=== PATIENT | female | born 1985 | race Caucasian/White ===

== ENCOUNTER 2017-03-05 04:49 | Inpatient (IN) | payer BC ==
[2017-03-05] MEDS ORDERED: Sodium Chloride 0.9% 10 ML Syringe FLUSH PRN (05:54)
[2017-03-05] MEDS ORDERED: Lidocaine 1% 50 ML MDV INJECT ONE (06:00)
[2017-03-05] MEDS ORDERED: Oxytocin/Lactated Ringers 10 UNIT/1,000 ML BAG IV SCH (06:00)
[2017-03-05] MEDS: Lactated Ringers 1,000 ML IV SCH ×2 (06:22→06:56)
[2017-03-05] MEDS ORDERED: Nalbuphine 20 MG/1 ML Amp IVPUSH PRN (06:43)
[2017-03-05] MEDS ORDERED: ePHEDrine 50 MG/ML SDV IVPUSH PRN (06:47)
[2017-03-05] MEDS ORDERED: fentaNYL 100 MCG/2 ML SDV EPIDUR PRN (06:47)
[2017-03-05] MEDS ORDERED: Ondansetron 4 MG/2 ML SDV IVPUSH PRN (06:47)
--- NOTE | 2017-03-05 06:54 | PCM.PREANE ---
Preanesthetic Assessment - Anesthesia/Transfusion/Family Hx Type of Transfusion Reactions: Reports: Unknown Intubation History: Unknown - Physical Assessment NPO Status Date: 03/05/17 Pulse: 76 O2 Sat by Pulse Oximetry: 99 Respiratory Rate: 18 Blood Pressure: 150/71 Temperature: 36.9 C Height: 1.63 m Weight: 84.822 kg ASA Class: 2 Mental Status: Alert & Oriented x3 - Lab Values: Laboratory Last Values WBC 13.95 K/mm3 (3.98-10.04) H 03/05/17 06:05 RBC 4.79 M/mm3 (3.98-5.22) 03/05/17 06:05 Hgb 12.3 gm/L (11.2-15.7) 03/05/17 06:05 Hct 37.0 % (34.1-44.9) 03/05/17 06:05 MCV 77.2 fl (79.4-94.8) L 03/05/17 06:05 MCH 25.7 pg (25.6-32.2) 03/05/17 06:05 MCHC 33.2 g/dl (32.2-35.5) 03/05/17 06:05 RDW Std Deviation 42.7 fL (36.4-46.3) 03/05/17 06:05 Plt Count 205 K/mm3 (182-369) 03/05/17 06:05 MPV 10.4 fl (9.4-12.3) 03/05/17 06:05 Neut % (Auto) 77.0 % (34.0-71.1) H 03/05/17 06:05 Lymph % (Auto) 17.1 % (19.3-51.7) L 03/05/17 06:05 Mathews % (Auto) 5.2 % (4.7-12.5) 03/05/17 06:05 Eos % (Auto) 0.6 (0.7-5.8) L 03/05/17 06:05 Baso % (Auto) 0.1 % (0.1-1.2) 03/05/17 06:05 Neut # (Auto) 10.76 K/mm3 (1.56-6.13) H 03/05/17 06:05 Lymph # (Auto) 2.38 K/mm3 (1.18-3.74) 03/05/17 06:05 Mathews # (Auto) 0.72 K/mm3 (0.24-0.36) H 03/05/17 06:05 Eos # (Auto) 0.08 K/mm3 (0.04-0.36) 03/05/17 06:05 Baso # (Auto) 0.01 K/mm3 (0.01-0.08) 03/05/17 06:05 above labs reviewed and noted. - Allergies Allergies/Adverse Reactions: Allergies Allergy/AdvReac Type Severity Reaction Status Date / Time No Known Allergies Allergy Verified 02/18/15 09:38 - Anesthesia Plan Pre-Op Medication Ordered: None - Acknowledgements Anesthesia Type Planned: Epidural Pt an Appropriate Candidate for the Planned Anesthesia: Yes Alternatives and Risks of Anesthesia Discussed w Pt/Guardian: Yes Pt/Guardian Understands and Agrees with Anesthesia Plan: Yes PreAnesthesia Questionnaire - Past Health History Medical/Surgical History: Denies Medical/Surgical History - SUBSTANCE USE Smoking Status *Q: Never Smoker Tobacco Use Within Last Twelve Months: No Second Hand Smoke Exposure: No Recreational Drug Use History: No - HOME MEDS Home Medications: Home Meds Nitrofurantoin Monohyd/M-Cryst [Macrobid 100 mg Capsule] 100 mg PO BID #20 capsule 11/07/16 [Rx] - CURRENT (IN HOUSE) MEDS Current Meds: Current Medications Ephedrine Sulfate (Ephedrine Sulfate) 5 mg IVPUSH ASDIRECTED PRN PRN Reason: Hypotension Fentanyl (Sublimaze) 100 mcg EPIDUR Q3H PRN PRN Reason: Pain Fentanyl/Bupivacaine HCl (Fentanyl/Bupivacaine/Ns 2 Mcg-0.125% 100 Ml) 100 ml EPIDUR ASDIRECTED BRIAN Lactated Ringer's (Ringers, Lactated) 1,000 mls @ 100 mls/hr IV ASDIRECTED BRIAN Last Admin: 03/05/17 06:22 Dose: 999 mls/hr Oxytocin/Lactated Ringer's (Pitocin In Lr 10 Units/1,000 Ml) 10 unit in 1,000 mls @ 100 mls/hr IV TITRATE BRIAN PRN Reason: Protocol Nalbuphine HCl (Nubain) 10 mg IVPUSH Q3H PRN PRN Reason: Pain Ondansetron HCl (Zofran) 4 mg IVPUSH ONETIME PRN PRN Reason: Nausea/Vomiting Sodium Chloride (Saline Flush) 10 ml FLUSH ASDIRECTED PRN PRN Reason: Keep Vein Open Discontinued Medications Lidocaine HCl (Xylocaine 1%) 50 ml INJECT ONETIME ONE Stop: 03/05/17 06:01
[2017-03-05] MEDS ORDERED: Bupivacaine/fentaNYL/NS 100 ML Bag EPIDUR SCH (07:00)
[2017-03-05] MEDS ORDERED: Benzocaine/Menthol 20%-0.5% Spray 56 GM Canister TOP PRN (07:27)
[2017-03-05] MEDS ORDERED: Lanolin 100% Cream 7 GM Tube TOP PRN (07:27)
[2017-03-05] MEDS ORDERED: Witch Hazel Medicated Pads 100/Jar TOP PRN (07:27)
[2017-03-05] MEDS ORDERED: Acetaminophen 325 MG Tab PO PRN (07:27)
[2017-03-05] MEDS ORDERED: Docusate Sodium 100 MG Cap PO PRN (07:27)
[2017-03-05] MEDS: Ibuprofen 600 MG Tab PO PRN (09:00)
[2017-03-05] MEDS: Prenatal Multivitamin with Calcium/Folic Acid/Iron Tab PO SCH (10:40)
--- NOTE | 2017-03-05 13:18 | HP ---
DATE OF ADMISSION: 03/05/2017 ADMISSION DIAGNOSIS: A 39 and 3/7th week intrauterine , active labor. HISTORY OF PRESENT ILLNESS: The patient is a 31-year-old 2, para 1-0-0-1 white female, who is admitted in active labor with cervical dilation of 5 to 6 cm. She is angela every 3 to 4 minutes-moderate intensity. Membranes are intact. heart tones are generally reassuring. SQUAD BOSS HISTORY: KANNAN 03/10/2017 placing her at 39 and 3/7th weeks gestational age. Her last menstrual period of 06/03/2016 onset is used for dating of the . This was supported by 2 ultrasounds being done on 09/09/2016 and again on 10/23/2016. course has been relatively unremarkable with the exception that she is a gestational diabetic, who has been very well controlled with her diet alone. She plans on . She is Rh negative and RhoGAM was given on 12/18/2016. Her Jones depression screen score done on 10/29/2016 with a score of 1. She is group B strep negative. She declined genetic evaluation. course started on 09/03/2016 at 13 and 1/7th weeks gestational age. She was seen on a very regular basis. Weight gain was from approximately 161 pounds up to 187 pounds for 26 pounds weight gain. Her vital signs remained stable throughout the course. Fundal height growth was appropriate. LABORATORY DATA: Laboratory testing in showed her blood to be A negative with negative antibody screen. Initial labs showed hemoglobin of 13.8 and a platelet count 225,000. She is rubella immune. RPR is nonreactive. Urine culture was negative. Hepatitis B surface antigen and HIV assays were both negative. Gonorrhea and chlamydia were both negative. Her 1-hour GTT was 191. Her 3-hour glucose tolerance test was abnormal. Gestational diabetes was diagnosed with a 3-hour GTT showing a fasting blood sugar, 92, a 1-hour sugar of 219, 2-hour blood sugar 159, 3-hour blood sugar 110. The patient received her anti-D immunoglobulin on 12/18/2016. She is group B strep negative. ALLERGIES: None. CURRENT MEDICATIONS: vitamins 1 daily. PAST MEDICAL HISTORY: 1. The patient has had 1 spontaneous vaginal delivery on 02/19/2015 at 39 and 4/7th weeks gestational age after 29 hours of labor-6 pounds 12 ounces female, named Joshua Granado. 2. Fracture of right humerus. PAST SURGICAL HISTORY: Unremarkable. FAMILY HISTORY: No bleeding, blood clotting, , or anesthesia problems noted in the family. Mother and father alive and well. Father with GERD. Two brothers alive and well. Maternal grandmother secondary to liver cancer. Maternal grandfather secondary to an [place]. Paternal grandmother and maternal grandfather alive and well. Paternal aunt with breast cancer, also with recurrent loss. No other problems noted. SOCIAL HISTORY: The patient is . is Ryley Thompson. 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 She does not use any significant amounts of alcohol, drugs, or tobacco. They live in [place], [place]. REVIEW OF SYSTEMS: SKIN: Negative. CARDIOVASCULAR: Negative. LUNGS: No infectious or asthma symptoms noted. BREASTS: Changes associated with only. GASTROINTESTINAL: Negative. GENITOURINARY: Increased fundal height and abdominal circumference consistent with . NEUROLOGIC: Negative. MUSCULOSKELETAL: Occasional edema in bilateral lower extremities. PHYSICAL EXAMINATION: GENERAL: On last evaluation in clinic, the patient is a well-developed, well- nourished, pleasant female of stated age, in no acute distress. The patient appears to be doing well. Mild distress secondary to contractions. VITAL SIGNS: Her weight was 187 with pre- weight of 161, blood pressure is 124/86, and heart rate was 140. Her height is 5 feet 4 inches. SKIN: Warm and dry without lesions. LUNGS: Clear with good breath sounds in all lung aguilar. CARDIOVASCULAR: Shows regular rate and rhythm without murmurs. BREASTS: Deferred, having been done at first visit, and found to be normal. The patient does plans to nurse. ABDOMEN: Protuberant with with fundal height of 38 cm. GENITOURINARY: Cervical exam as above. Baby in a vertex presentation, bag of zhang intact. EXTREMITIES AND NEUROLOGIC: Grossly within normal limits. No significant edema is noted. ASSESSMENT: 1. Term intrauterine at 39 and 3/7th weeks gestational age, in active labor with advanced cervical dilation. 2. The patient is okay with epidural. I would like to try natural labor. 3. Gestational diabetes-under excellent control with diet alone. 4. The patient plans to nurse. PLAN: 1. I anticipate normal spontaneous vaginal delivery. 2. Labor analgesia per patient's desire. 3. Encourage nursing behavior. 4. Rh immune globulin if indicated after delivery. THEODORA /[id number]
[2017-03-06] MEDS: Ibuprofen 600 MG Tab PO PRN (02:10)
--- NOTE | 2017-03-06 06:29 | PCM.SN ---
- Free Text/Narrative Note: Sharon is doing well this morning. Has minimal lochia. Nursing is going well. She is ambulating without concerns. Patient is afebrile, vital signs stable. Uterus is firm and it just below the umbilicus. It is nontender. Legs are nontender without significant edema Assessment/plan: day 1-good recovery. Hemoglobin today. Routine cares. Possibly home later today.
[2017-03-06] MEDS: Prenatal Multivitamin with Calcium/Folic Acid/Iron Tab PO SCH (09:29)
--- NOTE | 2017-03-06 11:45 | PCM.DCSUM1 ---
Discharge Summary - Hospital Course Free Text/Narrative:: Sharon is a 31-year-old 2 now para 2002 white female who began labor at approximately 0330 hrs. on 03/05/2017. She progressed rapidly and delivered within approximately six-hour period. She delivered a viable, thapa male infant. At a second-degree laceration which was repaired in routine fashion. She is nursing without problems. Patient's post has been unremarkable. She is well sounds. Minimal lochia. She is voiding well. She desires to be discharged home. - Discharge Data Discharge Date: 03/06/17 Discharge Disposition: Home, Self-Care 01 Condition: Good - Patient Instructions Diet: Regular Diet as Tolerated (Nursing diet with increased calories and calcium as recommended) Activity: As Tolerated (No intercourse or tampons until bleeding resolves.) Driving: May Drive Today Showering/Bathing: May Shower (May take a bath) Notify Provider of: Fever, Increased Pain, Swelling and Redness, Nausea and/or Vomiting - Discharge Plan Home Medications: Home Meds PNV95/Ferrous Fumarate/FA [ Tablet] 1 each PO DAILY 03/05/17 [History] Ibuprofen [IJD: Ibuprofen] 600 mg PO Q4H PRN #30 tablet 03/06/17 [Rx] Referrals: Jared Justice MD [Primary Care Provider] - (Return to [facility]Dr. Justice[address] [place] [address]) - Discharge Summary/Plan Comment DC Time >30 min.: No Discharge Summary/Plan Comment: Discharge instructions: 1. Discharge home 2. Regular, high fiber, nursing diet with increase calories and calcium as recommended 3. Precautions given concern increased pain, bleeding, temperature, signs/ symptoms of DVT/PE. 4. Medications per medication list printed, discussed with and given to the patient. 5. [facility] Diagnosis: 40+ week intrauterine , delivered Condition: Good - Patient Data Vitals - Most Recent: Last Vital Signs Temp 36.6 C 03/06/17 05:00 Pulse 76 03/06/17 05:00 Resp 12 03/06/17 05:00 BP 97/76 03/06/17 05:00 Pulse Ox 99 03/06/17 05:00 Weight - Most Recent: 84.822 kg Lab Results - Last 24 hrs: Laboratory Results - last 24 hr 03/06/17 Range/Units 06:35 WBC 12.08 H (3.98-10.04) K/mm3 RBC 4.38 (3.98-5.22) M/mm3 Hgb 11.1 L (11.2-15.7) gm/L Hct 34.6 (34.1-44.9) % MCV 79.0 L (79.4-94.8) fl MCH 25.3 L (25.6-32.2) pg MCHC 32.1 L (32.2-35.5) g/dl RDW Std Deviation 42.7 (36.4-46.3) fL Plt Count 184 (182-369) K/mm3 MPV 10.4 (9.4-12.3) fl Med Orders - Current: Current Medications Acetaminophen (Tylenol) 650 mg PO Q4H PRN PRN Reason: mild pain or fever Benzocaine/Menthol (Dermoplast Pain Relief Holiday) 0 gm TOP ASDIRECTED PRN PRN Reason: Perineal Comfort Measure Last Admin: 03/05/17 08:59 Dose: 56 gm Docusate Sodium (Colace) 100 mg PO BID PRN PRN Reason: Constipation Emollient Ointment (Lansinoh Hpa) 0 gm TOP ASDIRECTED PRN PRN Reason: Sore Nipples Ibuprofen (Motrin) 600 mg PO Q4H PRN PRN Reason: Mild pain or fever Last Admin: 03/06/17 02:10 Dose: 600 mg Prenat Multivit/Organ Pipe Voicer/Iron/Folic Ac ( Plus Iron) 1 each PO DAILY BRIAN Last Admin: 03/06/17 09:29 Dose: 1 each Witch Sharonda (Tucks) 1 pad TOP ASDIRECTED PRN PRN Reason: Hemorrhoid pain Last Admin: 03/05/17 08:59 Dose: 1 tub Discontinued Medications Ephedrine Sulfate (Ephedrine Sulfate) 5 mg IVPUSH ASDIRECTED PRN PRN Reason: Hypotension Fentanyl (Sublimaze) 100 mcg EPIDUR Q3H PRN PRN Reason: Pain Fentanyl/Bupivacaine HCl (Fentanyl/Bupivacaine/Ns 2 Mcg-0.125% 100 Ml) 100 ml EPIDUR ASDIRECTED BRIAN Lactated Ringer's (Ringers, Lactated) 1,000 mls @ 100 mls/hr IV ASDIRECTED BRIAN Last Admin: 03/05/17 06:56 Dose: 999 mls/hr Oxytocin/Lactated Ringer's (Pitocin In Lr 10 Units/1,000 Ml) 10 unit in 1,000 mls @ 100 mls/hr IV TITRATE BRIAN PRN Reason: Protocol Last Admin: 03/05/17 07:10 Dose: 500 mls/hr, 500 mls/hr Lidocaine HCl (Xylocaine 1%) 50 ml INJECT ONETIME ONE Stop: 03/05/17 06:01 Last Admin: 03/05/17 07:15 Dose: 50 ml Nalbuphine HCl (Nubain) 10 mg IVPUSH Q3H PRN PRN Reason: Pain Ondansetron HCl (Zofran) 4 mg IVPUSH ONETIME PRN PRN Reason: Nausea/Vomiting Sodium Chloride (Saline Flush) 10 ml FLUSH ASDIRECTED PRN PRN Reason: Keep Vein Open *Q Meaningful Use (DIS) - VTE *Q VTE Criteria *Q: - Stroke *Q Stroke Criteria *Q: - AMI *Q AMI Criteria *Q:
--- NOTE | 2017-03-06 13:13 | PCM.SN ---
- Free Text/Narrative Note: Delivery note: Quique is a 31-year-old 2 now para 2002 white female who arrived in spontaneous labor having onset at approximately 0330 hrs. on 2016. She progressed to complete and delivered at 0708 hrs. She delivered a viable, thapa male with Apgars of 9 and 9, weight of 3300 g (7 pounds 4.4 ounces) in an occiput anterior position. The second-degree laceration which was repaired with 3-0 Monocryl in a routine fashion. Baby's length was 20.0 inches. Lidocaine 1%10 mL was used for anesthesia. Placenta delivered in a Claire presentation. Estimated blood loss was 100 mL. Pitocin was given IV after delivery the baby. patient plans to nurse.
--- NOTE | 2017-03-06 13:14 | US ---
Right lower extremity deep venous ultrasound: Duplex and color flow imaging was obtained of the right common femoral vein, superficial femoral vein, popliteal vein, posterior tibial and peroneal veins. Left common femoral vein also was evaluated. Findings: Normal phasic flow, augmentation and compression is seen. Impression: 1. No findings of deep venous thrombosis are seen within the right lower extremity or within the left common femoral vein. Diagnostic code #1
[2017-03-06 13:34] VITALS: BP 115/84
== END 2017-03-06 13:10 | disposition home or self-care (01) | DRG 560 ==
LOC: JD.OB 04:49 → JD.OBCHECK 04:49 → JD.OB 05:55 → JD.MS 07:08 → OBSVTOIN 07:08 → JD.OB 12:25
PROVIDERS: ADMIT Obstetrics & Gynecology; ATTEND Obstetrics & Gynecology
PROC: 10E0XZZ Delivery of Products of Conception, External Approach (ICD-10-PCS; principal; 2017-03-05)
PROC: 0KQM0ZZ Repair Perineum Muscle, Open Approach (ICD-10-PCS; 2017-03-05)
PROC: 10907ZC Drainage of Amniotic Fluid, Therapeutic from Products of Conception, Via Natural or Artificial Opening (ICD-10-PCS; 2017-03-05)
DX: O24.420 Gestational diabetes mellitus in childbirth, diet controlled (principal); Z3A.39 39 weeks gestation of pregnancy; Z37.0 Single live birth; O70.1 Second degree perineal laceration during delivery; O69.81X0 Labor and delivery complicated by cord around neck, without compression, not applicable or unspecified
CPT/HCPCS: 36415; 85025; 85027; 86850; 86870; 86900; 86901; 93971-26-RT; 93971-RT; A9270-GY; J2590; J7120

== ENCOUNTER 2021-06-05 09:07 | Inpatient (IN) | payer BC ==
[~2021-06-05 09:07] MED LIST: Bupivacaine 0.25% 10 ML SDV ONE
--- NOTE | 2021-06-05 09:30 | PCM.LDHP ---
L&D History of Present Illness - General Date of Service: 06/05/21 Admit Problem/Dx: Admission Diagnosis/Problem Admission Diagnosis/Problem 06/05/21 09:21 Sharon is a 36-year-old 3 para 2-0-0-2 female presently at 39-1/7 weeks gestational age with an KANNAN of 06/11/2021, with a history of gestational diabetes on medications admitted for induction of labor. Source of Information: Patient History Limitations: Reports: No Limitations - History of Present Illness Introduction:: Sharon is a 36-year-old 3 para 2-0-0-2 female presently at 39-1/7 weeks gestational age with an KANNAN of 06/11/2021, with a history of gestational diabetes on medications admitted for induction of labor. The process and procedure of induction of labor, its risk, benefits, alternatives of care including allowing for natural onset of labor are discussed in detail with patient. She appears understand as does her Ryley and they wish to proceed. 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 She had menarche at appropriate age of approximately 12-13 years. Cycles, q. months. Last menstrual period started on 09/04/2020. KANNAN of 06/11/2021 is set by that LMP and supported by multiple ultrasounds during the course of the . Patient w as not using any control at the time of conception. Past obstetric history includes the followin. Female infant born 02/19/2013 at 39-4/7 weeks gestational age. 29 hours of labor. 6 pounds 12 ounces. . Epidural used. Child's name is Joshua Granado. 2. Female born 2016-39-2/7 weeks gestational age4 hours of labor7 pounds 4 ouncesNSVDno anesthesiachild's name is Sagar. course: Sharon was initially seen at 10 weeks gestational age. Ultrasound done at that time was consistent with her LMP dating. She is seen on a very regular basis throughout the care. Fundal height growth was appropriate. Weight gain was from 174.2 pounds up to 187 pounds for 13-1/2 pound increase. Vital signs are stable throughout the course. Patient was evaluated with monthly growth ultrasounds initially and then at 32 weeks and beyond was evaluated with weekly BPP's as she was placed on Metformin for gestational diabetes. With Metformin therapy and dietary modification her blood sugars remained very normal throughout the . She is group B strep negative. She reported being Covid positive on 05/01/2021. Symptoms have resolved almost completely since that time. She did receive Regeneron on 05/01/2021. She declines prequel. She had Rh immunoglobulin therapy as she is Rh-. This was given at the end of second trimester. She plans to breast-feed. She is hypothyroid but clinically euthyroid and thyroid testing throughout the has been unremarkable. Patient had her Tdap on 04/18/2021. She is rubella immune. Had her hepatitis B immunizations in 1999 and her previous Td was 11/19/1999. Allergies: None Medications: 1. Metformin 500 mg p.o. nightly 2. vitamins daily 3. Levothyroxine 50 mcg/day orally. Past medical history: 1. x2 2. Hypothyroidismon replacement and clinically euthyroid 3. Gestational diabetes 4. Fracture of right humerus at age 12 Past surgical history: Unremarkable Family history: Mother and father are alive and well. Father with GERD. 2 brothers alive and well. Maternal grandmother secondary to liver cancer. Maternal grandfather secondary to an [place]. Paternal grandmother and paternal grandfather are alive and well. Paternal aunt with breast cancer. Also with history of recurrent loss. No anesthesia, bleeding, blood clotting problems noted in the family. has been diagnosed with pulmonary hypertension. 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 Also has scoliosis with Frausto rods placed. Social history: Patient is . She and her Ryley live in [place], [place]. 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 She is a college graduate. She does not use any significant muscle alcohol, drugs or tobacco. Review of systems: In general patient has no complaints. Baby has been active. No significant contractions have been noted. Skin: Negative Lungs: No infectious symptoms or shortness of breath Cardiovascular: No chest pain or exercise intolerance Breasts: No lumps, changes in size, pain, dimpling, discharge or axillary or supraclavicular concerns. changes noted. Patient plans to breast- feed. GI: Negative : Body habitus changes associated with . Musculoskeletal: Negative Neurological: Negative In general the patient is well-developed, well-nourished, pleasant female of stated age in no acute distress. On last evaluation in clinic on 05/29/2021 blood pressure is 121/81. Her weight was 187.6 with pregravid weight of 174.2. Height is 5 feet 3. Prepregnancy body mass index is 30.2. Fundal height on last evaluation in clinic was 38. Skin is warm dry without lesions. HEENT, neck and back within normal limits. Lungs are clear with good breath sounds in all lung aguilar. Cardiovascular exam shows regular and rhythm without murmurs. Breast exam is deferred at this time having been done at first visit and found to be normal. Abdomen is gravid with last fundal height at 38 cm. Baby in vertex presentation. Genital exam shows cervix to be 3 cm dilated, 80% effaced, soft, -3 station, mid position. Extremities and neurological exam are grossly within normal limits. 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: Reports: Social & Family History - Family History Family Medical History: No Pertinent Family History - Caffeine Use Caffeine Use: Reports: None H&P Review of Systems - Review of Systems: Review Of Systems: See Below L&D Exam - Exam Exam: See Below - Patient Data Result Diagrams: 06/05/21 10:40 - Problem List (1) 39 weeks gestation of SNOMED Code(s): 45730112 ICD Code: Z3A.39 - 39 WEEKS GESTATION OF Status: Acute Current Visit: No (2) Gestational diabetes SNOMED Code(s): 34767450 ICD Code: O24.419 - GESTATIONAL DIABETES MELLITUS IN , UNSP CONTROL Status: Acute Current Visit: No (3) Hypothyroidism affecting in third trimester SNOMED Code(s): 724118823, 867022301 ICD Code: O99.283 - ENDO, NUTRITIONAL AND METAB DISEASES COMP PREG, THIRD TRI; E03.9 - HYPOTHYROIDISM, UNSPECIFIED Status: Acute Current Visit: No (4) History of COVID-19 SNOMED Code(s): 977647854194304497, 867642268873100117 ICD Code: Z86.16 - PERSONAL HISTORY OF COVID-19 Status: Acute Current Visit: No Problem List Initiated/Reviewed/Updated: Yes Assessment/Plan Comment:: 1. Sharon is a 36-year-old 3 para 2-0-0-2 female presently at 39-1/7 weeks gestational age with an KANNAN of 06/11/2021, with a history of gestational diabetes on medications admitted for induction of labor. 2. Risk factors for the include history of gestational diabeteson Metforminnormal blood sugars with medication and diet therapy, hypothyroidismclinically euthyroid and history of Covid diagnosed May 01ymptoms now essentially resolved 3. Patient plans to breast-feed 4. Patient is undecided about regional analgesia during Plan: 1. Induction of labor. Procedure, risk, benefits discussed with patient and her . They appear to understand and wished to proceed 2. Epidural per patient desire 3. Support breast-feeding decision 4. Continue levothyroxine 5. Admission labs to consist of CBC, RPR per protocol 6. Anticipate .
[2021-06-05] MEDS ORDERED: Nalbuphine 10 MG/1 ML Vial IVPUSH PRN (10:18)
[2021-06-05] MEDS ORDERED: Ondansetron 4 MG/2 ML SDV IVPUSH PRN (10:18)
[2021-06-05] MEDS ORDERED: Sodium Chloride 0.9% 10 ML Syringe FLUSH PRN (10:18)
[2021-06-05] MEDS ORDERED: Oxytocin/Lactated Ringers 10 UNIT/1,000 ML BAG IV SCH ×2 (10:30)
[2021-06-05] MEDS: Lactated Ringers 1,000 ML IV SCH ×2 (10:36→15:29)
--- NOTE | 2021-06-05 11:03 | PCM.PREANE ---
Preanesthetic Assessment - Procedure Proposed Procedure: Labor epidural - Anesthesia/Transfusion/Family Hx Anesthesia History: Prior Anesthesia Without Reaction Family History of Anesthesia Reaction: No Transfusion History: No Prior Transfusion(s) Type of Transfusion Reactions: Reports: Unknown Intubation History: Unknown - Review of Systems General: No Symptoms Pulmonary: No Symptoms Cardiovascular: No Symptoms Gastrointestinal: Abdominal Pain (uterine contractions) Neurological: No Symptoms Other: Reports: Diabetes, Thyroid Problems - Physical Assessment NPO Status Date: 06/05/21 NPO Status Time: 08:00 Height: 1.6 m Weight: 85.275 kg ASA Class: 2 Mental Status: Alert & Oriented x3 Airway Class: Mallampati = 2 Dentition: Reports: Normal Dentition Thyro-Mental Finger Breadths: 3 Mouth Opening Finger Breadths: 3 ROM/Head Extension: Full Lungs: Clear to Auscultation, Normal Respiratory Effort Cardiovascular: Regular Rate, Regular Rhythm, No Murmurs - Lab Values: Laboratory Last Values WBC 8.56 K/mm3 (3.98-10.04) 06/05/21 10:40 RBC 4.60 M/mm3 (3.98-5.22) 06/05/21 10:40 Hgb 12.0 gm/dl (11.2-15.7) 06/05/21 10:40 Hct 36.9 % (34.1-44.9) 06/05/21 10:40 MCV 80.2 fl (79.4-94.8) D 06/05/21 10:40 MCH 26.1 pg (25.6-32.2) 06/05/21 10:40 MCHC 32.5 g/dl (32.2-35.5) 06/05/21 10:40 RDW Std Deviation 42.8 fL (36.4-46.3) 06/05/21 10:40 Plt Count 214 K/mm3 (182-369) 06/05/21 10:40 MPV 9.8 fl (9.4-12.3) 06/05/21 10:40 Neut % (Auto) 67.1 % (34.0-71.1) 06/05/21 10:40 Lymph % (Auto) 23.2 % (19.3-51.7) 06/05/21 10:40 [place] % (Auto) 7.4 % (4.7-12.5) 06/05/21 10:40 Eos % (Auto) 0.7 (0.7-5.8) 06/05/21 10:40 Baso % (Auto) 0.2 % (0.1-1.2) 06/05/21 10:40 Neut # (Auto) 5.74 K/mm3 (1.56-6.13) 06/05/21 10:40 Lymph # (Auto) 1.99 K/mm3 (1.18-3.74) 06/05/21 10:40 [place] # (Auto) 0.63 K/mm3 (0.24-0.36) H 06/05/21 10:40 Eos # (Auto) 0.06 K/mm3 (0.04-0.36) 06/05/21 10:40 Baso # (Auto) 0.02 K/mm3 (0.01-0.08) 06/05/21 10:40 - Allergies Allergies/Adverse Reactions: Allergies Allergy/AdvReac Type Severity Reaction Status Date / Time No Known Allergies Allergy Verified 03/05/17 11:29 - Blood Blood Available: No Product(s) Available: None - Acknowledgements Anesthesia Type Planned: Epidural Pt an Appropriate Candidate for the Planned Anesthesia: Yes Alternatives and Risks of Anesthesia Discussed w Pt/Guardian: Yes Pt/Guardian Understands and Agrees with Anesthesia Plan: Yes PreAnesthesia Questionnaire - Past Health History Medical/Surgical History: Denies Medical/Surgical History Cardiovascular History: Reports: None Respiratory History: Reports: None Gastrointestinal History: Reports: None Genitourinary History: Reports: None DERRICK HAND History: Reports: Musculoskeletal History: Reports: None Neurological History: Reports: None Psychiatric History: Reports: None Endocrine/Metabolic History: Reports: Diabetes, Gestational, Hypothyroidism Hematologic History: Reports: None Immunologic History: Reports: None Oncologic (Cancer) History: Reports: None Dermatologic History: Reports: None - Infectious Disease History Infectious Disease History: Reports: Novel Coronavirus (Had covid 05/01/21, received regeneron) - SUBSTANCE USE Tobacco Use Status *Q: Never Tobacco User Tobacco Use Within Last Twelve Months: No Second Hand Smoke Exposure: No Days Per Week of Alcohol Use: 0 Number of Drinks Per Day: 0 Total Drinks Per Week: 0 Recreational Drug Use History: No - HOME MEDS Home Medications: Home Meds Pnv No.95/Ferrous Fum/Folic AC [ Tablet] 1 each PO DAILY 03/05/17 [History] Ibuprofen [IJD: Ibuprofen] 600 mg PO Q4H PRN #30 tablet 03/06/17 [Rx] - CURRENT (IN HOUSE) MEDS Current Meds: Current Medications Oxytocin/Lactated Ringer's (Pitocin In Lr 10 Units/1,000 Ml) 10 unit in 1,000 mls @ 12 mls/hr IV TITRATE BRIAN; Protocol Last Admin: 06/05/21 10:36 Dose: 2 munits/min, 12 mls/hr Documented by: Oxytocin/Lactated Ringer's (Pitocin In Lr 10 Units/1,000 Ml) 10 unit in 1,000 mls @ 500 mls/hr IV .CONTINUOUS BRIAN Lactated Ringer's (Ringers, Lactated) 1,000 mls @ 100 mls/hr IV ASDIRECTED BRIAN Last Admin: 06/05/21 10:36 Dose: 100 mls/hr Documented by: Nalbuphine HCl (Nalbuphine 10 Mg/1 Ml Vial) 10 mg IVPUSH Q2H PRN PRN Reason: Pain Ondansetron HCl (Ondansetron 4 Mg/2 Ml Sdv) 4 mg IVPUSH Q4H PRN PRN Reason: Nausea/Vomiting Sodium Chloride (Sodium Chloride 0.9% 10 Ml Syringe) 10 ml FLUSH ASDIRECTED PRN PRN Reason: Keep Vein Open
[2021-06-05] MEDS ORDERED: fentaNYL 100 MCG/2 ML SDV EPIDUR PRN (15:16)
[2021-06-05] MEDS ORDERED: diphenhydrAMINE 50 MG/ML SDV IVPUSH PRN (15:16)
[2021-06-05] MEDS ORDERED: Bupivacaine/fentaNYL/NS 100 ML Bag EPIDUR PRN (15:16)
[2021-06-05] MEDS ORDERED: ePHEDrine 50 MG/ML SDV IVPUSH PRN (15:16)
[2021-06-05] MEDS ORDERED: Ibuprofen 600 MG Tab PO PRN (17:59)
[2021-06-05] MEDS ORDERED: Acetaminophen 325 MG Tab PO PRN ×2 (17:59→18:37)
--- NOTE | 2021-06-05 17:59 | PCM.SN.2 ---
- Free Text/Narrative Note: Delivery note: Stage I: Sharon is a 36-year-old 3 para 2-0-0-2 female presently at 39- 1/7 weeks gestational age with an KANNAN of 06/11/2021, with a history of gestational diabetes on medications admitted for induction of labor. Patient was admitted and started on Pitocin per protocol. This is increased to sti mulate contractions every 2 to 4 minutes, moderate in intensity. Initially cervix was 3 cm, 80% effaced, -3, mid position, soft with cephalic presentation. Plan was to bring the head down and applied well to the cervix then rupture membranes. AROM was undertaken with resultant clear amniotic fluid. Sharon underwent an epidural for labor analgesia with good results. Heart tones remained normal throughout the labor course. Towards the end she has some variable decelerations secondary to head compression and as determined after delivery the loose nuchal cord x1. She became completely dilated by approximately 1700 hrs. At that time patient began pushing and pushed well. The baby weighed 3330 g (7 pounds 5.5 ounces), had Apgars of 8 and 9 and a length of 19.5 inches. Stage II: Sharon delivered a viable, thapa, male in a direct occiput anterior position at 7 to 24 hours on 06/05/2021. Anterior and posterior shoulders delivered without problem. The baby was placed on mom's abdomen after delivery, was dried with warm blanket. Nose and mouth were bulb suctioned. Pitocin solution that was used for induction of labor rate was increased to 999 cc an hour to facilitate and increase in uterine tone and decrease likelihood of bleeding. The umbilical cord was allowed to pulsate x 2 to 3 minutes. It was then clamped x2 and cut by the baby's Father Ryley. Umbilical cord had 3 vessels. Cord blood was obtained. The patient incurred a second-degree laceration which was repaired with 3-0 Monocryl suture in a running fashion per protocol. Patient tolerated this well. Epidural analgesia was used for perineal laceration anesthesia with good results. Stage III: The placenta delivered at 1724 hrs. in a Raygoza presentation. It appeared intact and complete and was discarded per patient desire. Patient plans to breast-feed. Epidural catheter was removed without problems. Patient was shown the end of the catheter to confirm complete removal. Estimated blood loss was 100 cc. Time Documentation
[2021-06-05] MEDS ORDERED: Benzocaine/Menthol 20%-0.5% Spray 78 GM Cannister TOP PRN (18:37)
[2021-06-05] MEDS ORDERED: Witch Hazel Medicated Pads 40/Jar TOP PRN (18:37)
[2021-06-05] MEDS ORDERED: Docusate Sodium 100 MG Cap PO PRN (18:37)
[2021-06-05] MEDS: Ibuprofen 600 MG Tab PO PRN (20:46)
[2021-06-06] MEDS ORDERED: Levothyroxine 50 MCG Tab PO SCH (06:00)
--- NOTE | 2021-06-06 07:54 | PCM.SN.2 ---
- Free Text/Narrative Note: note: day #1 Patient is doing well in the period. Minimal lochia, voiding well, ambulated without problems. Nursing without concerns. Patient is afebrile, vital signs are stable Abdomen is flat, soft, uterus is below the umbilicus and is firm and nontender. Legs are nontender. Assessment: recovery going well. Plan: Routine care. Patient be discharged home within the next 24-48 hours. Time Documentation
[2021-06-06] MEDS: Ibuprofen 600 MG Tab PO PRN ×2 (08:51→14:29)
[2021-06-06] MEDS ORDERED: Prenatal Multivitamin with Calcium/Folic Acid/Iron Tab PO SCH (09:00)
[2021-06-06] MEDS ORDERED: FLU Vacc QS2021-22 36MOS UP/PF 60 MCG/0.5 ML Syringe IM ONE (11:45)
--- NOTE | 2021-06-06 12:27 | PCM48HPAN ---
Post Anesthesia Note - EVALUATION WITHIN 48HRS OF ANESTHETIC Vital Signs in Normal Range: Yes Patient Participated in Evaluation: Yes Respiratory Function Stable: Yes Airway Patent: Yes Cardiovascular Function Stable: Yes Hydration Status Stable: Yes Pain Control Satisfactory: Yes Nausea and Vomiting Control Satisfactory: Yes Mental Status Recovered: Yes Vital Signs: Last Vital Signs Temp 36.4 C 06/06/21 08:15 Pulse 98 06/06/21 08:15 Resp 16 06/06/21 08:15 BP 116/76 06/06/21 08:15 Pulse Ox 99 06/06/21 08:15
[2021-06-06 14:49] VITALS: BP 109/61; PULSE 85
[2021-06-06] MEDS ORDERED: FLU Vacc QS2021(65UP)/MF59C/PF 60 MCG/0.5 ML Syringe IM ONE (17:27)
--- NOTE | 2021-06-06 17:33 | PCM.DCSUM1 ---
Discharge Summary - Hospital Course Free Text/Narrative:: Stage I: Sharon is a 36-year-old 3 para 2-0-0-2 female presently at 39- 1/7 weeks gestational age with an KANNAN of 06/11/2021, with a history of gestational diabetes on medications admitted for induction of labor. Patient was admitted and started on Pitocin per protocol. This is increased to stimulate contractions every 2 to 4 minutes, moderate in intensity. Initially cervix was 3 cm, 80% effaced, -3, mid position, soft with cephalic presentation. Plan was to bring the head down and applied well to the cervix then rupture membranes. AROM was undertaken with resultant clear amniotic fluid. Sharon underwent an epidural for labor analgesia with good results. Heart tones remained normal throughout the labor course. Towards the end she has some variable decelerations secondary to head compression and as determined after delivery the loose nuchal cord x1. She became completely dilated by approximately 1700 hrs. At that time patient began pushing and pushed well. The baby weighed 3330 g (7 pounds 5.5 ounces), had Apgars of 8 and 9 and a length of 19.5 inches. Stage II: Sharon delivered a viable, thapa, male in a direct occiput anterior position at 7 to 24 hours on 06/05/2021. Anterior and posterior shoulders delivered without problem. The baby was placed on mom's abdomen after delivery, was dried with warm blanket. Nose and mouth were bulb suctioned. Pitocin solution that was used for induction of labor rate was increased to 999 cc an hour to facilitate and increase in uterine tone and decrease likelihood of bleeding. The umbilical cord was allowed to pulsate x 2 to 3 minutes. It was then clamped x2 and cut by the baby's Father Ryley. Umbilical cord had 3 vessels. Cord blood was obtained. The patient incurred a second-degree laceration which was repaired with 3-0 Monocryl suture in a running fashion per protocol. Patient tolerated this well. Epidural analgesia was used for perineal laceration anesthesia with good results. Stage III: The placenta delivered at 1724 hrs. in a Raygoza presentation. It appeared intact and complete and was discarded per patient desire. Patient plans to breast-feed. Epidural catheter was removed without problems. Patient was shown the end of the catheter to confirm complete removal. Estimated blood loss was 100 cc. patient has done very well. She is nursing without problems, ambulating well and has minimal lochia. She is desiring discharge home. Diagnosis: Stroke: No - Discharge Data Discharge Date: 06/06/21 Discharge Disposition: Home, Self-Care 01 Condition: Good - Referral to Home Health Primary Care Physician: Lily Colon NP - Discharge Diagnosis/Problem(s) (1) 39 weeks gestation of SNOMED Code(s): 38407380 ICD Code: Z3A.39 - 39 WEEKS GESTATION OF Status: Acute Current Visit: No (2) Gestational diabetes SNOMED Code(s): 98650103 ICD Code: O24.419 - GESTATIONAL DIABETES MELLITUS IN , UNSP CONTROL Status: Acute Current Visit: No (3) Hypothyroidism affecting in third trimester SNOMED Code(s): 333201817, 508327855 ICD Code: O99.283 - ENDO, NUTRITIONAL AND METAB DISEASES COMP PREG, THIRD TRI; E03.9 - HYPOTHYROIDISM, UNSPECIFIED Status: Acute Current Visit: No (4) History of COVID-19 SNOMED Code(s): 502045796412688376, 325358392405507059 ICD Code: Z86.16 - PERSONAL HISTORY OF COVID-19 Status: Acute Current Visit: No - Patient Instructions Diet: Regular Diet as Tolerated Activity: As Tolerated (No intercourse or tampons until bleeding resolves) Driving: May Drive Today Showering/Bathing: May Shower Showering/Bathing, Other: May take a bath - Discharge Plan Home Medications: Home Meds Pnv No.95/Ferrous Fum/Folic AC [ Tablet] 1 each PO DAILY 03/05/17 [History] Acetaminophen [Tylenol] 650 mg PO Q4H PRN tablet 06/06/21 [Rx] Ibuprofen [Motrin] 600 mg PO Q4H PRN tablet 06/06/21 [Rx] Levothyroxine [Synthroid] 50 mcg PO ACBREAKFAST tablet 06/06/21 [Rx] Referrals: Jared Justice MD [Physician] - ([facility] to 4 weeks.) - Discharge Summary/Plan Comment DC Time >30 min.: No Total # of Minutes for Discharge Time: 10 Discharge Summary/Plan Comment: Discharge instructions: 1. Discharge home 2. Diet, activity and follow-up discussed with patient. Recommend nursing diet with increased calories and calcium. 3. Precautions given concern increased pain, bleeding, temperature, signs/symptoms of DVT/PE. 4. Medications per home medication was printed, discussed with and given to the patient. 5. Return to clinic-Dr. Justice[facility] in [place], [place] in 3-4 weeks. Diagnosis: 1. Term -delivered 2. Gestational diabetesmanaged with Metformin and dietary modification 3. Hypothyroidism on medicationsclinically euthyroid. Condition: Good - Patient Data Vitals - Most Recent: Last Vital Signs Temp 36.6 C 06/06/21 14:23 Pulse 85 06/06/21 14:23 Resp 16 06/06/21 14:23 BP 109/61 06/06/21 14:23 Pulse Ox 99 06/06/21 14:23 Weight - Most Recent: 85.275 kg I&O - Last 24 hours: Intake & Output 06/06/21 06/06/21 06/06/21 06:59 14:59 22:59 Intake Total 2 Balance 2 Lab Results - Last 24 hrs: Laboratory Results - last 24 hr 06/05/21 06/05/21 Range/Units 10:40 21:16 RPR Non-reactive (NONREACTIVE) Blood Type A NEGATIVE Gel Antibody Screen Negative Screen 0 ros/5 flds - neg RhIG Candidate? Yes Rhogam Indicated Yes, baby rh pos H Med Orders - Current: Current Medications Acetaminophen (Acetaminophen 325 Mg Tab) 650 mg PO Q4H PRN PRN Reason: mild pain or fever Last Admin: 06/06/21 04:19 Dose: 650 mg Documented by: Benzocaine/Menthol (Benzocaine/Menthol 20%-0.5% [place] 78 Gm Cannister) 0 gm TOP ASDIRECTED PRN PRN Reason: Perineal Comfort Measure Docusate Sodium (Docusate Sodium 100 Mg Cap) 100 mg PO BID PRN PRN Reason: Constipation Ibuprofen (Ibuprofen 600 Mg Tab) 600 mg PO Q4H PRN PRN Reason: Mild pain or fever Last Admin: 06/06/21 14:29 Dose: 600 mg Documented by: Influenza Virus Vaccine (Flu Vacc [id number](65up)/Mf59c/Pf 60 Mcg/0.5 Ml Syringe) 60 mcg IM .ONCE ONE Stop: 06/06/21 17:28 Levothyroxine Sodium (Levothyroxine 50 Mcg Tab) 50 mcg PO ACBREAKFAST BRIAN Last Admin: 06/06/21 05:39 Dose: Not Given Documented by: Prenat Multivit/[place]olores/Iron/Folic Ac ( Multivitamin With Calcium/Folic Acid/Iron Tab) 1 each PO DAILY BRIAN Last Admin: 06/06/21 08:16 Dose: 1 each Documented by: Mi Mcdonough (Mi Mcdonough Medicated Pads 40/Jar) 1 pad TOP ASDIRECTED PRN PRN Reason: Perineal Comfort Measure Discontinued Medications Acetaminophen (Acetaminophen 325 Mg Tab) 650 mg PO Q4H PRN PRN Reason: Pain Bupivacaine HCl (Bupivacaine 0.25% 10 Ml Sdv) 10 ml .ROUTE .STK-MED ONE Stop: 06/05/21 00:01 Diphenhydramine HCl (Diphenhydramine 50 Mg/Ml Sdv) 25 mg IVPUSH Q6H PRN PRN Reason: pruritis Ephedrine Sulfate (Ephedrine 50 Mg/Ml Sdv) 5 mg IVPUSH ASDIRECTED PRN PRN Reason: Hypotension Fentanyl (Fentanyl 100 Mcg/2 Ml Sdv) 100 mcg EPIDUR Q3H PRN PRN Reason: Pain Last Admin: 06/05/21 15:29 Dose: 100 mcg Documented by: Fentanyl/Bupivacaine HCl (Bupivacaine/Fentanyl/Ns 100 Ml Bag) 100 ml EPIDUR ASDIRECTED PRN PRN Reason: Pain Last Admin: 06/05/21 15:29 Dose: 100 ml Documented by: Oxytocin/Lactated Ringer's (Pitocin In Lr 10 Units/1,000 Ml) 10 unit in 1,000 mls @ 12 mls/hr IV TITRATE BRIAN; Protocol Last Titration: 06/05/21 15:10 Dose: 10 munits/min, 60 mls/hr Documented by: Oxytocin/Lactated Ringer's (Pitocin In Lr 10 Units/1,000 Ml) 10 unit in 1,000 mls @ 500 mls/hr IV .CONTINUOUS BRIAN Lactated Ringer's (Ringers, Lactated) 1,000 mls @ 100 mls/hr IV ASDIRECTED BRIAN Last Admin: 06/05/21 15:29 Dose: 100 mls/hr Documented by: Ibuprofen (Ibuprofen 600 Mg Tab) 600 mg PO Q4H PRN PRN Reason: Mild pain or fever Influenza Virus Vaccine (Pharmacy To Dose - Influenza Vaccine) 1 each IM ONETIME ONE Stop: 06/05/21 11:34 Influenza Virus Vaccine (Flu Vacc [id number] 36mos Up/Pf 60 Mcg/0.5 Ml Syringe) 60 mcg IM .ONCE ONE Stop: 06/06/21 11:46 Nalbuphine HCl (Nalbuphine 10 Mg/1 Ml Vial) 10 mg IVPUSH Q2H PRN PRN Reason: Pain Ondansetron HCl (Ondansetron 4 Mg/2 Ml Sdv) 4 mg IVPUSH Q4H PRN PRN Reason: Nausea/Vomiting Sodium Chloride (Sodium Chloride 0.9% 10 Ml Syringe) 10 ml FLUSH ASDIRECTED PRN PRN Reason: Keep Vein Open
== END 2021-06-06 18:15 | disposition home or self-care (01) | DRG 560 ==
LOC: JD.OB 09:29 → UNDOADMOB 09:29 → OBSVTOIN 17:24 → JD.OB 17:24
PROVIDERS: ADMIT Obstetrics & Gynecology; ATTEND Obstetrics & Gynecology
PROC: 10E0XZZ Delivery of Products of Conception, External Approach (ICD-10-PCS; principal; 2021-06-05)
PROC: 10907ZC Drainage of Amniotic Fluid, Therapeutic from Products of Conception, Via Natural or Artificial Opening (ICD-10-PCS; 2021-06-05)
PROC: 3E0R3BZ Introduction of Anesthetic Agent into Spinal Canal, Percutaneous Approach (ICD-10-PCS; 2021-06-05)
PROC: 0KQM0ZZ Repair Perineum Muscle, Open Approach (ICD-10-PCS; 2021-06-05)
PROC: 00HU33Z Insertion of Infusion Device into Spinal Canal, Percutaneous Approach (ICD-10-PCS; 2021-06-05)
DX: O24.425 Gestational diabetes mellitus in childbirth, controlled by oral hypoglycemic drugs (principal); O99.284 Endocrine, nutritional and metabolic diseases complicating childbirth; Z3A.39 39 weeks gestation of pregnancy; Z37.0 Single live birth; E03.9 Hypothyroidism, unspecified; O69.81X0 Labor and delivery complicated by cord around neck, without compression, not applicable or unspecified; Z86.16 Personal history of COVID-19; Z20.822 Contact with and (suspected) exposure to COVID-19; O70.1 Second degree perineal laceration during delivery
CPT/HCPCS: 01967; 36415; 51702; 59025; 59409; 85025; 85461; 86592; 86850; 86900; 86901; 90686; A9270-GY; G0008; J2590; J2790; J3010; J3490; J7120